=== PATIENT | male | born 1970 | race Caucasian/White ===

== ENCOUNTER 2018-08-31 20:00 | Emergency (ER) | payer SELFPAY ==
[2018-08-31 20:16] VITALS: BP 150/84
--- NOTE | 2018-08-31 20:54 | RADIOLOGY REPORT (SQ) ---
EXAM DESCRIPTION: XR HAND 3 OR MORE VIEWS COMPLETED DATE/TME: 08/31/2018 00:00 CLINICAL HISTORY: 47 years, Male, splinter in base of left thumb. COMPARISON: None. NUMBER OF VIEWS: Three TECHNIQUE: Frontal, oblique, and lateral radiographs of the left hand were obtained LIMITATIONS: None. FINDINGS: Visualized osseous structures are normal in appearance. Joint spaces are well-maintained. No acute fracture or dislocation is evident. However, there is soft tissue swelling surrounding the base of the thumb. No definite retained radiopaque foreign body. IMPRESSION: Soft tissue swelling about the base of the thumb without underlying acute osseous anomaly or definite retained radiopaque foreign body. However, wood splinters are not generally radiopaque. copyright 2010 [employer]- All Rights Reserved
[2018-08-31] MEDS ORDERED: CEFTRIAXONE 1 GM/D5W RTU 1 GM/50 ML RTUPB IV ONE (21:56)
[2018-08-31] MEDS ORDERED: SULFAMETHOXAZOLE/TRIMETHOPRIM 800-160 MG TABLET PO ONE (21:56)
--- NOTE | 2018-08-31 21:58 | ER Document Report ---
ED Medical Screen (RME) - General Chief Complaint: Hand Injury Stated Complaint: SWOLLEN LEFT HAND Time Seen by Provider: 08/31/18 21:56 Notes: 47-year-old male, chief complaint of getting a wooden splinter in his left palm at 11 AM yesterday, pulled part of the splinter out, unsure if he has retained piece. Since that time he has had increased swelling, he has developed redness and inability to move the left thumb today. Denies fever/chills, diabetes. Up-to-date on tetanus. TRAVEL OUTSIDE OF THE [place] IN LAST 30 DAYS: No - Related Data Allergies/Adverse Reactions: No Known Allergies Allergy (Verified 03/15/16 22:35) Past Medical History - Immunizations Hx Diphtheria, Pertussis, Tetanus Vaccination: Yes Physical Exam - Vital signs Vitals: Temp Pulse Resp BP Pulse Ox 98.7 F 80 22 H 150/84 H 99 08/31/18 20:14 08/31/18 20:14 08/31/18 20:14 08/31/18 20:14 08/31/18 20:14 - Extremities General upper extremity: Other - Left hand with a soft tissue swelling, warmth, tenderness with a small puncture wound noted at the palmar aspect near the thenar area. Very limited ability to move the left thumb. Course - Re-evaluation Re-evalutation: I have greeted and performed a rapid initial assessment of this patient. A comprehensive ED assessment and evaluation of the patient, analysis of test results and completion of the medical decision making process will be conducted by additional ED providers. - Vital Signs Vital signs: Temp Pulse Resp BP Pulse Ox 98.7 F 80 22 H 150/84 H 99 08/31/18 20:14 08/31/18 20:14 08/31/18 20:14 08/31/18 20:14 08/31/18 20:14
[2018-08-31 22:58] LABS: ABSOLUTE EOSINOPHILS # (AUTO) 0.1 10^3/uL (0.0-0.6); ABSOLUTE LYMPHOCYTES (AUTO) 2.9 10^3/uL (0.5-4.7); BASOPHILS % (AUTO) 0.2 % (0-2); EOSINOPHILS % (AUTO) 1.1 % (0-6); HEMATOCRIT 41.3 % (37.9-51.0); HEMOGLOBIN 14.3 g/dL (13.5-17.0); LYMPHOCYTES % (AUTO) 24.4 % (13-45); MEAN CORPUSCULAR HEMOGLOBIN 31.6 pg (27.0-33.4); MEAN CORPUSCULAR HGB CONC 34.6 g/dL (32.0-36.0); MEAN CORPUSCULAR VOLUME 91 fl (80-97); MONOCYTES % (AUTO) 8.2 % (3-13); PLATELET COUNT 189 10^3/uL (150-450); RED BLOOD COUNT 4.52 10^6/uL (4.35-5.55); RED CELL DISTRIBUTION WIDTH 13.2 % (11.5-14.0); SEGMENTED NEUTROPHILS % (AUTO) 66.1 % (42-78); TOTAL CELLS COUNTED % (AUTO) 100 %; WHITE BLOOD COUNT 12.1 10^3/uL (4.0-10.5)
[2018-08-31 23:23] LABS: ANION GAP 9 (5-19); BLOOD UREA NITROGEN 12 mg/dL (7-20); CALCIUM 9.5 mg/dL (8.4-10.2); CARBON DIOXIDE 28 mmol/L (22-30); CHLORIDE 104 mmol/L (98-107); GLUCOSE 80 mg/dL (75-110); SODIUM 141.4 mmol/L (137-145)
--- NOTE | 2018-09-01 00:21 | ER Document Report ---
Addendum entered and electronically signed by FARIBA REYES PA 09/01/18 06:31: Physical Exam - Vital signs Vitals: Temp Pulse Resp BP Pulse Ox 98.7 F 80 22 H 150/84 H 99 08/31/18 20:14 08/31/18 20:14 08/31/18 20:14 08/31/18 20:14 08/31/18 20:14 - Notes Notes: GENERAL: Alert, interacts well. No acute distress. HEAD: Normocephalic, atraumatic. EYES: Pupils equal, round, and reactive to light. Extraocular movements intact. ENT: Oral mucosa moist, tongue midline. Oropharynx unremarkable. Airway patent. LUNGS: Clear to auscultation bilaterally, no wheezes, rales, or rhonchi. No respiratory distress. HEART: Regular rate and rhythm. No murmur ABDOMEN: Soft, non-tender. Non-distended. Bowel sounds present in all 4 quadrants. GENITOURINARY: Deferred EXTREMITIES: Left thumb with a healing wound over the palmar aspect just underneath the PIP of the thumb, beyond this there is soft tissue swelling, erythema, tenderness. Very limited range of motion of the thumb. Sensation and capillary refill intact. Remaining hand exam unremarkable. Remaining extremities unremarkable. BACK: no cervical, thoracic, lumbar midline tenderness. No saddle anesthesia, normal distal neurovascular exam. NEUROLOGICAL: Alert and oriented x3. Normal speech. . PSYCH: Normal affect, normal mood. SKIN: Warm, dry, normal turgor. No rashes or lesions noted. Addendum entered and electronically signed by FARIBA REYES PA 09/01/18 06:30: Past Medical History - General Information source: Patient - Social History Smoking Status: Current Every Day Smoker Chew tobacco use (# tins/day): No Frequency of alcohol use: None Drug Abuse: None Lives with: Family Family History: Reviewed & Not Pertinent Patient has suicidal ideation: No Patient has homicidal ideation: No - Medical History Medical History: Negative Renal/ Medical History: Denies: Hx Peritoneal Dialysis - Immunizations Immunizations up to date: Yes Hx Diphtheria, Pertussis, Tetanus Vaccination: Yes Original Note: ED Hand/Wrist Injury - General TRAVEL OUTSIDE OF THE [place] IN LAST 30 DAYS: No <FARIBA REYES - Last Filed: 09/01/18 00:19> <ADILENE CELIS - Last Filed: 09/01/18 00:37> - General Chief Complaint: Hand Injury Stated Complaint: SWOLLEN LEFT HAND Time Seen by Provider: 08/31/18 21:56 Notes: Patient is a 47-year-old male, chief complaint of getting a wooden splinter in his left palm at 11 AM yesterday, pulled part of the splinter out, unsure if he has retained piece. Since that time he has had increased swelling, he has developed redness and inability to move the left thumb today. Denies fever/chills, diabetes. Up-to-date on tetanus. (FARIBA REYES) - Related Data Allergies/Adverse Reactions: No Known Allergies Allergy (Verified 03/15/16 22:35) Past Medical History - Social History Smoking Status: Current Every Day Smoker Chew tobacco use (# tins/day): No Frequency of alcohol use: None Drug Abuse: None Family History: Reviewed & Not Pertinent Patient has suicidal ideation: No Patient has homicidal ideation: No Renal/ Medical History: Denies: Hx Peritoneal Dialysis - Immunizations Hx Diphtheria, Pertussis, Tetanus Vaccination: Yes <FARIBA REYES - Last Filed: 09/01/18 00:19> - Vital signs Vitals: Temp Pulse Resp BP Pulse Ox 98.7 F 80 22 H 150/84 H 99 08/31/18 20:14 08/31/18 20:14 08/31/18 20:14 08/31/18 20:14 08/31/18 20:14 Course - Laboratory Result Diagrams: 08/31/18 22:23 08/31/18 22:23 <FARIBA REYES - Last Filed: 09/01/18 00:19> - Laboratory Result Diagrams: 08/31/18 22:23 08/31/18 22:23 <ADILENE CELIS - Last Filed: 09/01/18 00:37> - Re-evaluation Re-evalutation: 09/01/18 00:32 Patient was initially seen by the physician tourist information assistant, Fariba Reyes. I went and saw the patient as well. Patient has an area over the flexor aspect of the th umb where he had pulled out a splinter. Since then his thumb has become very swollen. He now cannot flex the thumb. He cannot fully extend the thumb. I have concerns for flexor tenosynovitis. I explained to the patient what flexor tenosynovitis is. I informed him that this is something that most likely may require surgery and that he should be seen by orthopedics and admitted to the hospital. I informed him that delaying this could lead to loss of function of his thumb or potentially lose his thumb or part of his hand. Patient is understanding of this but is adamant that he has to leave because he has to be the superintendent service of a job tomorrow. He says that he will take the antibiotics and go to work tomorrow in the morning and inform his boss of what is going on and therefore come back to the ER in the morning. I informed him that I am glad that he is planning to come back tomorrow however that still delaying treatment of his thumb by even 12 hours could lead to a bad outcome and decrease the use of his hand in the future. Patient is understanding of this and still says that he cannot stay and requests to be discharged AGAINST MEDICAL ADVICE. Patient will be discharged as he requests. I once again informed him that we want what is best for him and therefore encourage him to return anytime and want him to return so that we can get him the appropriate treatment for his hand and thumb. Patient agrees and will be discharged home as he requests. Dictation of this chart was performed using voice recognition software; therefore, there may be some unintended grammatical errors. (ADILENE CELIS) - Vital Signs Vital signs: Temp Pulse Resp BP Pulse Ox 98.7 F 80 22 H 150/84 H 99 08/31/18 20:14 08/31/18 20:14 08/31/18 20:14 08/31/18 20:14 08/31/18 20:14 - Laboratory Laboratory results interpreted by me: 08/31/18 22:23 WBC 12.1 H Discharge <FARIBA REYES - Last Filed: 09/01/18 00:19> <ADILENE CELIS - Last Filed: 09/01/18 00:37> - Discharge Clinical Impression: Swelling of left hand Condition: Stable Disposition: HOME, SELF-CARE Additional Instructions: The x-ray does not show any obvious foreign body but this is nonspecific given a possible wooden splinter. Your examination is concerning for an infection in your hand, this can also cause an infection in the tendon sheath which can be very serious. Keep clean and dressed. Clean with soap and water. You have been started on antibiotics but I recommend that you return as soon as possible if this does not improve or if this worsens in any way. Prescriptions: Cephalexin Monohydrate [Keflex 500 mg Capsule] 500 mg PO QID #28 capsule Sulfamethoxazole/Trimethoprim [Bactrim Ds Tablet] 1 each PO BID #14 tablet
== END 2018-09-01 00:25 | disposition home or self-care (01) ==
LOC: ER 20:00
DX: M79.89 Other specified soft tissue disorders (principal); S60.552A Superficial foreign body of left hand, initial encounter; X58.XXXA Exposure to other specified factors, initial encounter; F17.200 Nicotine dependence, unspecified, uncomplicated
CPT/HCPCS: 99283; 96365; 36415; 85025; 80048; 73130; J0696

== ENCOUNTER 2019-10-25 09:29 | Day surgery (SDC) | payer OTHER ==
[2019-10-20 09:33] LABS: HEMATOCRIT 41.2 % (37.9-51.0); HEMOGLOBIN 14.2 g/dL (13.5-17.0); MEAN CORPUSCULAR HEMOGLOBIN 31.5 pg (27.0-33.4); MEAN CORPUSCULAR HGB CONC 34.5 g/dL (32.0-36.0); MEAN CORPUSCULAR VOLUME 91 fl (80-97); PLATELET COUNT 191 10^3/uL (150-450); RED BLOOD COUNT 4.52 10^6/uL (4.35-5.55); RED CELL DISTRIBUTION WIDTH 12.9 % (11.5-14.0); WHITE BLOOD COUNT 6.6 10^3/uL (4.0-10.5)
[~2019-10-25 09:29] MED LIST: ACETAMINOPHEN 325 MG TABLET PO PRN; CEFAZOLIN 2 GM/D5W RTU 2 GM/50 ML RTUPB IV ONE; CEFAZOLIN 2 GM/D5W RTU 2 GM/50 ML RTUPB IV PRN; LACTATED RINGERS 1000 ML IV PRN; LIDOCAINE 0.5% INJ-PF (5 MG/ML) 50 ML SDV SUBCUT PRN
[2019-10-25] MEDS ORDERED: PROPOFOL INJ 200 MG/20 ML VIAL IV ONE (10:35)
[2019-10-25] MEDS ORDERED: FENTANYL CITRATE INJ/PF 250 MCG/5 ML AMPULE ONE (10:35)
[2019-10-25] MEDS ORDERED: MIDAZOLAM 2 MG/2 ML INJ ONE (10:35)
[2019-10-25] MEDS: BUPIVACAINE HCL 0.25% /EPINEPHRINE INJ/PF 30 ML SDV ONE ×2 (11:34→12:09)
[2019-10-25] MEDS ORDERED: PROMETHAZINE HCL INJ 25 MG/1 ML VIAL IV PRN ×2 (12:04)
[2019-10-25] MEDS ORDERED: OXYCODONE-ACETAMINOPHEN 5-325 MG TABLET PO PRN ×3 (12:04→12:26)
[2019-10-25] MEDS ORDERED: FENTANYL CITRATE INJ/PF 100 MCG/2 ML AMPUL IV PRN ×3 (12:04)
[2019-10-25] MEDS ORDERED: DIPHENHYDRAMINE HCL 50 MG/ML VIAL IV PRN (12:04)
[2019-10-25] MEDS ORDERED: MEPERIDINE HCL/PF INJ 25 MG/1 ML DISP.SYRIN IV PRN (12:04)
--- NOTE | 2019-10-25 12:22 | Operative Report ---
Nonrecallable Operative Report DATE OF SURGERY: 10/25/19 PREOPERATIVE DIAGNOSIS: left inguinal hernia POSTOPERATIVE DIAGNOSIS: left inguinal hernia OPERATION: laparoscopic left inguianl hernia repair SURGEON: ELIAN SELLERS PL SQL PROGRAMMER: [place] ANESTHESIA: GA TISSUE REMOVED OR ALTERED: none COMPLICATIONS: none ESTIMATED BLOOD LOSS: 10cc INTRAOPERATIVE FINDINGS: see note PROCEDURE: Patient was brought to the operating room awake alert stable condition placed in the operative table supine position induced under general anesthesia and intubated. Both left and right groin and lower abdomen prepped and draped in usual sterile fashion. After appropriate timeout and site verification the procedure commenced. Curvilinear infraumbilical incision was made with a 15 blade dissection was carried down through subcutaneous tissue with Bovie cautery to the rectus sheath transverse incision was made in the anterior rectus sheath and the muscle was retracted laterally and the Spacemaker balloon was placed into the retroperitoneum on top of the posterior sheath it was insufflated under direct vision and removed the working port was then placed through that incision as well as 2 5 mm ports in the midline under direct vision. We turned attention to the left side we mobilized the peritoneum along the left lateral abdominal wall with blunt dissection identifying the transversalis muscle and continued our dissection inferiorly to where we identified the hernia defect. We then lifted the cord structures as well as the hernia sac up and dissected the cord structures away from the hernia sac and began dissecting the hernia sac away from a indirect inguinal hernia defect. The patient had a fairly large sac and it took some dissection to remove the sac from the hernia defect once it was done the hernia sac was posterior lysed and the cord structures were easily visualized the vas deferens and spermatic artery is spermatic veins were all identified. We then fashioned a piece of polypropylene mesh 6 cm long by 4 cm wide with a slit down the side placed into the retroperitoneum we fix it posterior to Benedict's ligament anterior to the rectus muscle laterally through transversalis muscle. We then wrapped the cord structures and fix the 2 tails of the mesh to itself laterally. We were careful not to injure the lateral femoral cutaneous nerve. Once we cover the large hernia defect on the left side we turned attention to the right side and examined it for hernia defect we mobilized the peritoneum away from the lateral abdominal wall identified the peritoneum that was lying on top of the cord structures it did not extend therefore he did not have a hernia on the right side the pneumoperitoneum was then reduced Iinto the groin. There is also no evidence of a direct inguinal hernia the fascial defects were closed with 0 Vicryl in the fascia and then all 3 skin incisions were made with the size of 0.5% Marcaine solution is closed with 4-0 Biosyn and Steri-Strips completed the procedure estimated blood loss was less than 10 cc sponge needle counts correct x2 the patient was awakened in the operating extubated transferred recovery stable condition no complications
--- NOTE | 2019-10-25 12:26 | Discharge Summary ---
Discharge Summary (SDC) - Discharge Final Diagnosis: left inguinal hernia Date of Surgery: 10/25/19 Discharge Date: 10/25/19 Condition: Good Prescriptions: Oxycodone HCl/Acetaminophen [Percocet 10-325 Mg Tablet] 1 each PO Q6HP PRN #15 tablet PRN Reason: Referrals: CHENG BENRSTEIN MD [Primary Care Provider] - Discharge Diet: Regular Discharge Activity: Activity As Tolerated, No Lifting Over 10 Pounds Report the Following to Your Physician Immediately: Shortness of Breath, Nausea, Vomiting, Increase in Pain, Unusual Bleeding - f/u with me in 7-10 days.
[2019-10-25 14:13] VITALS: BP 143/108
[2019-10-25] MEDS ORDERED: ROCURONIUM BROMIDE INJ 50 MG/5 ML VIAL IV ONE (14:39)
[2019-10-25] MEDS ORDERED: ONDANSETRON HCL INJ/PF 4 MG/2 ML SDV ONE (14:39)
[2019-10-25] MEDS ORDERED: SUCCINYLCHOLINE CHLORIDE INJ 200 MG/10 ML VIAL ONE (14:39)
[2019-10-25] MEDS ORDERED: DEXAMETHASONE SOD PHOSPHATE INJ 4 MG/1 ML VIAL ONE (14:39)
== END 2019-10-25 13:55 | disposition home or self-care (01) ==
LOC: OROUT 09:29
PROVIDERS: ATTEND Surgery
DX: K40.90 Unilateral inguinal hernia, without obstruction or gangrene, not specified as recurrent (principal); F17.210 Nicotine dependence, cigarettes, uncomplicated; Z03.818 Encounter for observation for suspected exposure to other biological agents ruled out
CPT/HCPCS: 36415; 85027; 87635; 49650; J2250; J3490 ×2; J1100; J3010; J0330; J2405; J2704; J0690; C9803; C1713; C1781

== ENCOUNTER 2020-01-13 08:58 | Day surgery (SDC) | payer OTHER ==
[2020-01-13 09:44] LABS: HEMATOCRIT 40.1 % (37.9-51.0); HEMOGLOBIN 14.1 g/dL (13.5-17.0); MEAN CORPUSCULAR HEMOGLOBIN 30.9 pg (27.0-33.4); MEAN CORPUSCULAR HGB CONC 35.2 g/dL (32.0-36.0); MEAN CORPUSCULAR VOLUME 88 fl (80-97); PLATELET COUNT 231 10^3/uL (150-450); RED BLOOD COUNT 4.58 10^6/uL (4.35-5.55); RED CELL DISTRIBUTION WIDTH 14.1 % (11.5-14.0)
[2020-01-13 10:00] LABS: INTERNATIONAL RATION (INR) 0.95; PROTHROMBIN TIME 12.9 SEC (11.4-15.4)
[2020-01-13 10:01] LABS: PARTIAL THROMBOPLASTIN TIME 23.5 SEC (23.5-35.8)
[2020-01-13 10:05] LABS: BLOOD UREA NITROGEN 16 mg/dL (7-20)
[2020-01-13] MEDS ORDERED: FENTANYL CITRATE INJ/PF 100 MCG/2 ML AMPUL ONE (11:26)
[2020-01-13] MEDS ORDERED: MIDAZOLAM 2 MG/2 ML INJ ONE (11:26)
[2020-01-13 16:41] VITALS: BP 139/96
--- NOTE | 2020-01-13 18:19 | RADIOLOGY REPORT (SQ) ---
EXAM DESCRIPTION: CHEST SINGLE VIEW IMAGES COMPLETED DATE/TIME: 01/13/2020 2:49 pm REASON FOR STUDY: 2HR POST BIOPSY COMPARISON: CT biopsy images from earlier. Radiographs from 2016. FINDINGS: One-view chest AP portable upright. No pneumothorax. Bilateral mild apical pleural thickening, chronic. Lungs are otherwise clear. TECHNICAL DOCUMENTATION: JOB ID: [id number] Reading location - IP[facility]workstation name: [email or web address]
--- NOTE | 2020-01-17 13:43 | RADIOLOGY REPORT (SQ) ---
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 TECHNIQUE: CT guided biopsy of the left adrenal mass performed with conscious sedation. CT Fluoroscopy Time: 1 minutes [address] scanners at this facility use dose modulation, iterative reconstruction, and/or weight based d osing when appropriate to reduce radiation dose to as low as reasonably achievable (ALARA). [facility]: Dose Right [facility]: CareDose [facility]: Dose Right [facility]: Teradose 4D [facility]: [employer] RADIATION DOSE: mGy. FINDINGS: After obtaining informed consent and explaining the risks and benefits of conscious sedati on,the patient agreed to the procedure. Prior to the procedure, a time out was performed to verify th e patient's identity and planned procedure. IV sedation was administered and physician direction by the registered nurse using 0.5 milligrams of Versed and 25 micrograms of fentanyl, for conscious sedation. Physiologic monitoring was provided bef ore, during, and after sedation. The total sedation time was 30 minutes. Documentation face to face time, the performing proceduralist, spent monitoring the patient: [address] scanning was performed to localize the percutaneous site for the biopsy approach. After sterile skin prep and local lidocaine for skin and deep tissue anesthesia, a coaxial biopsy nee dle was used to obtain multiple cores of tissue. The biopsy tissue was submitted to the lab in forma qian. There were no immediate complications. Pathology is pending at the time of dictation. IMPRESSION: CT GUIDED BIOPSY OF THE LEFT ADRENAL GLAND PERFORMED WITHOUT IMMEDIATE COMPLICATION. KRISTIN THOLOGY ADENOCARCINOMA, FAVOR LUNG PRIMARY. COMMENT: Quality ID 145: Final reports for procedures using fluoroscopy that document radiation exp osure indices, or exposure time and number of fluorographic images (if radiation exposure indices are not available) Patient medication list reviewed: Yes- Quality ID# [id number]:Eligible professional attests to documenting i n the medical record they obtained, updated, or reviewed the patient's current medications.. TECHNICAL DOCUMENTATION: JOB ID: [id number] Quality ID# [id number]: Final reports with documentation of one or more dose reduction techniques (e.g., Aut omated exposure control, adjustment of the mA and/or kV according to patient size, use of iterative r econstruction technique) 2010 [employer]- All Rights Reserved Reading location - IP/workstation name: [email or web address]
== END 2020-01-13 14:45 | disposition home or self-care (01) ==
LOC: RAD 08:58
PROVIDERS: ATTEND Internal Medicine
DX: C74.12 Malignant neoplasm of medulla of left adrenal gland (principal); F17.210 Nicotine dependence, cigarettes, uncomplicated
CPT/HCPCS: 36415; 84520; 82565; 85027; 85610; 85730; 88342 ×2; 88341 ×2; 88305 ×2; 88313 ×2; 71045; 49180; J2250; J3010

== ENCOUNTER 2020-02-01 07:01 | Day surgery (SDC) | payer OTHER ==
[~2020-02-01 07:01] MED LIST changes: -ACETAMINOPHEN 325 MG TABLET PO PRN; -LACTATED RINGERS 1000 ML IV PRN; -LIDOCAINE 0.5% INJ-PF (5 MG/ML) 50 ML SDV SUBCUT PRN
[2020-02-01] MEDS ORDERED: HEPARIN SOD (PORCINE) 1,000 UNIT/ML 10 ML VIAL ONE (08:10)
[2020-02-01] MEDS ORDERED: LIDOCAINE 1%/EPINEPHRINE INJ 20 ML VIAL ONE (08:10)
[2020-02-01] MEDS ORDERED: HEPARIN SOD (PORCINE) 1,000 UNIT/ML 1 ML VIAL ONE (09:53)
[2020-02-01] MEDS ORDERED: FENTANYL CITRATE INJ/PF 100 MCG/2 ML AMPUL ONE (09:54)
[2020-02-01] MEDS ORDERED: LIDOCAINE 2% INJ-PF (20 MG/ML) 10 ML AMPUL ONE (09:54)
[2020-02-01] MEDS ORDERED: PROPOFOL INJ 200 MG/20 ML VIAL IV ONE (09:54)
[2020-02-01] MEDS ORDERED: ONDANSETRON HCL INJ/PF 4 MG/2 ML SDV ONE (09:54)
[2020-02-01] MEDS ORDERED: MIDAZOLAM 2 MG/2 ML INJ ONE (09:54)
[2020-02-01] MEDS ORDERED: KETAMINE HCL INJ 500 MG/10 ML VIAL ONE (09:54)
[2020-02-01] MEDS ORDERED: OXYCODONE-ACETAMINOPHEN 5-325 MG TABLET PO PRN ×2 (10:21)
[2020-02-01] MEDS ORDERED: PROMETHAZINE HCL INJ 25 MG/1 ML VIAL IV PRN ×2 (10:21)
[2020-02-01] MEDS ORDERED: MORPHINE SULFATE 10 MG/ML INJ IV PRN (10:21)
[2020-02-01] MEDS ORDERED: MEPERIDINE HCL/PF INJ 25 MG/1 ML DISP.SYRIN IV PRN (10:21)
[2020-02-01] MEDS ORDERED: DIPHENHYDRAMINE HCL 50 MG/ML VIAL IV PRN (10:21)
[2020-02-01] MEDS ORDERED: FENTANYL CITRATE INJ/PF 100 MCG/2 ML AMPUL IV PRN ×3 (10:21)
--- NOTE | 2020-02-01 10:59 | Operative Report ---
Nonrecallable Operative Report DATE OF SURGERY: 02/01/20 PREOPERATIVE DIAGNOSIS: metastatic lung cancer POSTOPERATIVE DIAGNOSIS: metastatic lung cancer OPERATION: portacath placement left chest ANESTHESIA: Moderate Sedation TISSUE REMOVED OR ALTERED: none COMPLICATIONS: none ESTIMATED BLOOD LOSS: 0 INTRAOPERATIVE FINDINGS: see note PROCEDURE: Patient was brought to the operating when awake alert stable condition placed on the operating table in supine position and given IV sedation the left chest and neck were prepped and draped in usual sterile fashion. After appropriate timeout site verification the procedure commenced. Using 1% lidocaine plain a skin wheal was made just below the left clavicle and the skin and then a tract was anesthetized with a lidocaine to reach the left clavicle. Then using the 16-gauge needle the left subclavian vein was accessed and a wire was placed into it and confirmed in the left superior vena cava on fluoroscopy. The dilator introducer combination was placed over the wire and manipulated under fluoroscopy into the superior vena cava. The dilator was removed and the Port-A-Cath catheter was placed in through the tear-away introducer placed just above the right atrium on fluoroscopy and the tear-away introducer was torn away. On the left anterior chest wall a transverse incision was made just above the nipple after anesthetizing the skin with 1% lidocaine with epinephrine. A subcutaneous pocket was made with Bovie cautery to allow for the port. The tunnel maker supplied with a kit was utilized to tunnel the catheter from the subclavian stick site to the port site. The catheter was cut and then attached to the port. It withdrew and flushed easily. Good position was confirmed with fluoroscopy. It was placed into the pocket and the subcutaneous tissue was reapproximated with interrupted 3-0 Vicryl and skin was reapproximated intracuticular 3-0 Biosyn Steri-Strips completed the procedure. Estimated blood loss was negligible sponge needle counts correct x2 the patient was transferred to recovery room in stable condition. Chest x-ray is pending.
--- NOTE | 2020-02-01 11:02 | PDOC DISCHARGE SUMMARY ---
General - Admit/Disc Date/PCP Admission Date/Primary Care Provider: CHENG BERNSTEIN MD Discharge Date: 02/01/20 - Discharge Diagnosis Final Diagnosis: metastatic lung cancer - Additional Information Resuscitation Status: Full Code Discharge Diet: As Tolerated Discharge Activity: Activity As Tolerated, No Lifting Over 10 Pounds Referrals: CHENG BERNSTEIN MD [Primary Care Provider] - Home Medications: Dexamethasone [Decadron] 2 mg PO QID 01/13/20 Folic Acid 1 mg PO DAILY 01/13/20 Tramadol HCl [Ultram] 50 mg PO PRN PRN 01/31/20 History of Present Illiness History of Present Illness: SUNSHINE MONTILLA is a 49 year old male Physical Exam Vital Signs: Temp Pulse Resp BP Pulse Ox 97.9 F 74 18 124/87 H 97 02/01/20 07:00 02/01/20 07:00 02/01/20 07:00 02/01/20 07:00 02/01/20 07:00 Intake & Output 01/31/20 02/01/20 02/02/20 06:59 06:59 06:59 Intake Total 50 Balance 50 Weight 59.42 kg 59.42 kg Results Laboratory Results: COVID-19 Source See comment 01/27/20 11:20 COVID-19 ([facility]) Not Detected (Not Detect) 01/27/20 11:20
--- NOTE | 2020-02-01 11:28 | RADIOLOGY REPORT (SQ) ---
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 FLUOROSCOPY TIME: 3.5 minutes Spot images saved to PACS. TECHNIQUE: Intra-operative images acquired during surgical procedure to evaluate progress. NUMBER OF IMAGES: 2 LIMITATIONS: None. FINDINGS: Fluoroscopy was provided for intraoperative procedure. Please refer to the operative repo rt for further discussion. IMPRESSION: IMAGE(S) OBTAINED DURING PROCEDURE. COMMENT: Quality ID 145: Final reports for procedures using fluoroscopy that document radiation exp osure indices, or exposure time and number of fluorographic images (if radiation exposure indices are not available) Please consult full operative report of the attending physician for description of the procedure. TECHNICAL DOCUMENTATION: JOB ID: [id number] 2010 [email or web address]- All Rights Reserved Reading location - IP/workstation name: [email or web address]
--- NOTE | 2020-02-01 11:28 | RADIOLOGY REPORT (SQ) ---
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 FLUOROSCOPY TIME: 3.5 minutes Spot images saved to PACS. TECHNIQUE: Intra-operative images acquired during surgical procedure to evaluate progress. NUMBER OF IMAGES: 2 LIMITATIONS: None. FINDINGS: Fluoroscopy was provided for intraoperative procedure. Please refer to the operative repo rt for further discussion. IMPRESSION: IMAGE(S) OBTAINED DURING PROCEDURE. COMMENT: Quality ID 145: Final reports for procedures using fluoroscopy that document radiation exp osure indices, or exposure time and number of fluorographic images (if radiation exposure indices are not available) Please consult full operative report of the attending physician for description of the procedure. TECHNICAL DOCUMENTATION: JOB ID: [id number] 2010 [employer]- All Rights Reserved Reading location - IP/workstation name: [email or web address]
[2020-02-01 12:57] VITALS: BP 116/83
== END 2020-02-01 12:45 | disposition home or self-care (01) ==
LOC: OROUT 07:01
PROVIDERS: ATTEND Surgery
DX: C34.90 Malignant neoplasm of unspecified part of unspecified bronchus or lung (principal); C79.31 Secondary malignant neoplasm of brain; F17.210 Nicotine dependence, cigarettes, uncomplicated; Z86.69 Personal history of other diseases of the nervous system and sense organs; Z03.818 Encounter for observation for suspected exposure to other biological agents ruled out; Z79.899 Other long term (current) drug therapy
CPT/HCPCS: 87635; 71045; 77001; 00532; 36561; C1788; Q9967; J2250; J3010; J1644; J3490 ×3; J2405; J2704; J0690; J1642; C9803; 532

== ENCOUNTER → 2020-02-06 | Outpatient (CLI) | payer OTHER ==
--- NOTE | 2020-02-06 13:57 | RADIOLOGY REPORT (SQ) ---
EXAM DESCRIPTION: VENOUS UNILATERAL LOWER IMAGES COMPLETED DATE/TIME: 02/06/2020 1:44 pm REASON FOR STUDY: RLE PAIN M79.604 PAIN IN RIGHT LEG COMPARISON: None. TECHNIQUE: Dynamic and static gaoan scale and color images acquired of the right leg venous system. S elected spectral images acquired with additional compression and augmentation maneuvers. The contrala teral common femoral vein and saphenofemoral junction were also imaged. Images stored on PACS. LIMITATIONS: None. FINDINGS: COMMON FEMORAL: Normal phasicity, compression and augmentation. No visualized echogenic ma terial on gaona scale. No defects on color images. FEMORAL: There is acute thrombus in the superficial femoral vein. POPLITEAL: Acute thrombus. CALF VESSELS: Acute thrombus. GSV and SSV: Normal compression, augmentation. No visualized echogenic material on gaona scale. No def ects on color images. ANY DEEP VENOUS INSUFFICIENCY: Not evaluated. ANY EVIDENCE OF POPLITEAL CYST: No. OTHER: No other significant finding. CONTRALATERAL COMMON FEMORAL VEIN AND SAPHENOFEMORAL JUNCTION: Normal phasicity, compression and augmentation. No visualized echogenic material on gaona scale. No de fects on color images. IMPRESSION: Acute DVT in the right lower extremity from the proximal superficial femoral vein into t he calf veins. TECHNICAL DOCUMENTATION: JOB ID: [id number] 2010 [employer]- All Rights Reserved Reading location - IP/workstation name: [email or web address]
== END ==
LOC: SP 12:28
PROVIDERS: ATTEND Internal Medicine
DX: I82.411 Acute embolism and thrombosis of right femoral vein (principal); M79.604 Pain in right leg; M79.89 Other specified soft tissue disorders
CPT/HCPCS: 93971

== ENCOUNTER 2020-03-15 08:02 | Day surgery (SDC) | payer OTHER ==
[2020-03-09 13:15] LABS: HEMATOCRIT 40.1 % (37.9-51.0); HEMOGLOBIN 14.2 g/dL (13.5-17.0); MEAN CORPUSCULAR HEMOGLOBIN 31.7 pg (27.0-33.4); MEAN CORPUSCULAR HGB CONC 35.5 g/dL (32.0-36.0); MEAN CORPUSCULAR VOLUME 89 fl (80-97); PLATELET COUNT 387 10^3/uL (150-450); RED BLOOD COUNT 4.49 10^6/uL (4.35-5.55); RED CELL DISTRIBUTION WIDTH 15.7 % (11.5-14.0); WHITE BLOOD COUNT 6.8 10^3/uL (4.0-10.5)
[~2020-03-15 08:02] MED LIST changes: +ACETAMINOPHEN 325 MG TABLET PO PRN; +DEXMEDETOMIDINE INJ 80 MCG/20 ML VIAL IV ONE; +FENTANYL CITRATE INJ/PF 100 MCG/2 ML AMPUL ONE; +LACTATED RINGERS 1000 ML IV PRN; +LIDOCAINE 2% INJ (20 MG/ML) 20 ML MDV ONE; +MIDAZOLAM 2 MG/2 ML INJ ONE; +PROPOFOL INJ 200 MG/20 ML VIAL IV ONE
[2020-03-15] MEDS ORDERED: HEPARIN SOD (PORCINE) 1,000 UNIT/ML 1 ML VIAL ONE (09:21)
[2020-03-15] MEDS ORDERED: LIDOCAINE 1%/EPINEPHRINE INJ 20 ML VIAL ONE (09:21)
[2020-03-15 09:33] LABS: INTERNATIONAL RATION (INR) 0.99; PROTHROMBIN TIME 13.3 SEC (11.4-15.4)
[2020-03-15 09:34] LABS: PARTIAL THROMBOPLASTIN TIME 34.2 SEC (23.5-35.8)
[2020-03-15] MEDS ORDERED: FENTANYL CITRATE INJ/PF 100 MCG/2 ML AMPUL IV PRN ×3 (09:47)
[2020-03-15] MEDS ORDERED: ONDANSETRON HCL INJ/PF 4 MG/2 ML SDV IV PRN (09:47)
[2020-03-15] MEDS ORDERED: MEPERIDINE HCL/PF INJ 25 MG/1 ML DISP.SYRIN IV PRN (09:47)
[2020-03-15] MEDS ORDERED: DIPHENHYDRAMINE HCL 50 MG/ML VIAL IV PRN (09:47)
[2020-03-15] MEDS ORDERED: PROMETHAZINE HCL INJ 25 MG/1 ML VIAL IV PRN (09:47)
[2020-03-15] MEDS ORDERED: MORPHINE SULFATE 10 MG/ML INJ IV PRN (09:47)
--- NOTE | 2020-03-15 10:29 | Operative Report ---
Nonrecallable Operative Report DATE OF SURGERY: 03/15/20 PREOPERATIVE DIAGNOSIS: Metastatic lung cancer POSTOPERATIVE DIAGNOSIS: Same OPERATION: Port-A-Cath placement right chest SURGEON: ELIAN OCAMPO ANESTHESIA: Moderate Sedation TISSUE REMOVED OR ALTERED: None COMPLICATIONS: None ESTIMATED BLOOD LOSS: 2 cc INTRAOPERATIVE FINDINGS: See note PROCEDURE: Procedure patient brought to the operating room awake alert stable condition placed on the operative table supine position given IV sedation. The right neck and chest were prepped and draped in usual sterile fashion. Using 1% lidocaine with epinephrine the area underneath the right clavicle was anesthetized in the subcutaneous tissue. Then using a 16-gauge needle we gained access to the right subclavian vein. A wire was placed in through the needle into the superior vena cava confirmed on fluoroscopy. Once this was done the dilator introducer was placed over the wire into the superior vena cava. The dilator was removed and the catheter was placed in through the tear-away introducer positioned in the superior vena cava and the tear-away introducer was torn away. A point was picked on the right anterior chest wall this was anesthetized with 1% lidocaine with epinephrine. A transverse incision was made over the T6 int erspace on the anterior chest wall just above the right nipple. After the incision was made a subcutaneous pocket was fashioned with Bovie cautery. Then using the tunnel maker supplied with a kit the catheter was tunneled from the right subclavian stick site to the port site. It was attached to the port and confirmed with good flow and withdraw. Fluoroscopy was utilized to determine good position. The port was then heparinized with heparinized saline solution and the subcutaneous tissue was closed with interrupted 3-0 Vicryl sutures. The skin was closed with intracuticular 4-0 Biosyn and a sterile dressing was applied. Estimated blood loss was less then 5 cc sponge needle counts were correct x2 he was transferred recovery in stable condition no complications
--- NOTE | 2020-03-15 10:31 | Discharge Summary ---
Discharge Summary (SDC) - Discharge Final Diagnosis: Metastatic lung cancer Date of Surgery: 03/15/20 Discharge Date: 03/15/20 Condition: Fair Referrals: CHENG BERNSTEIN MD [Primary Care Provider] - Discharge Diet: As Tolerated Respiratory Treatments at Home: Deep Breathing/Coughing Discharge Activity: Activity As Tolerated Home Care Assistance: None Needed Report the Following to Your Physician Immediately: Fever over 101 Degrees, Redness, Drainage-Yellow, Drainage-Foul Smelling - Patient will follow-up in surgical clinic in 7 to 10 days and with oncology.
--- NOTE | 2020-03-15 11:45 | RADIOLOGY REPORT (SQ) ---
EXAM DESCRIPTION: CHEST SINGLE VIEW IMAGES COMPLETED DATE/TIME: 03/15/2020 10:59 am REASON FOR STUDY: Post Port-A-Cath placement COMPARISON: 02/01/2020 EXAM PARAMETERS: NUMBER OF VIEWS: One view. TECHNIQUE: Single frontal radiographic view of the chest acquired. RADIATION DOSE: NA LIMITATIONS: None. FINDINGS: LUNGS AND PLEURA: No opacities, masses or pneumothorax. No pleural effusion. MEDIASTINUM AND HILAR STRUCTURES: No masses. Contour normal. HEART AND VASCULAR STRUCTURES: Heart normal in size. Normal vasculature. BONES: No acute findings. HARDWARE: Injection port is now on the right side. The tip of the catheter is in the superior vena c reina. OTHER: No other significant finding. IMPRESSION: Injection port as described. TECHNICAL DOCUMENTATION: JOB ID: [id number] 2010 [employer]- All Rights Reserved Reading location - IP/workstation name: [email or web address]
[2020-03-15 12:31] VITALS: BP 97/72
--- NOTE | 2020-03-15 12:49 | RADIOLOGY REPORT (SQ) ---
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 FLUOROSCOPY TIME: 1.5 minutes Spot images saved to PACS. TECHNIQUE: Intra-operative images acquired during surgical procedure to evaluate progress. NUMBER OF IMAGES: 2 LIMITATIONS: None. FINDINGS: Fluoroscopy was provided for intraoperative procedure. Please refer to the operative repo rt for further discussion. IMPRESSION: IMAGE(S) OBTAINED DURING PROCEDURE. COMMENT: Quality ID [id number]: Final reports for procedures using fluoroscopy that document radiation exp osure indices, or exposure time and number of fluorographic images (if radiation exposure indices are not available) Please consult full operative report of the attending physician for description of the procedure. TECHNICAL DOCUMENTATION: JOB ID: [id number] 2010 [employer]- All Rights Reserved Reading location - IP/workstation name: [email or web address]
== END 2020-03-15 12:10 | disposition home or self-care (01) ==
LOC: OROUT 08:02
PROVIDERS: ATTEND Surgery
DX: C34.90 Malignant neoplasm of unspecified part of unspecified bronchus or lung (principal); C79.9 Secondary malignant neoplasm of unspecified site; F17.210 Nicotine dependence, cigarettes, uncomplicated; Z86.718 Personal history of other venous thrombosis and embolism; Z79.01 Long term (current) use of anticoagulants; Z79.899 Other long term (current) drug therapy; Z86.69 Personal history of other diseases of the nervous system and sense organs; Z03.818 Encounter for observation for suspected exposure to other biological agents ruled out
CPT/HCPCS: 36415 ×2; 85027; 85610; 85730; 87635; 71045; 77001; 36561; C1788; Q9967; J2250; J3490 ×3; J1644; J2704; J0690; C9803; J3010

== ENCOUNTER → 2020-06-06 | Outpatient (CLI) | payer OTHER ==
--- NOTE | 2020-06-06 14:26 | RADIOLOGY REPORT (SQ) ---
EXAM DESCRIPTION: HUMERUS LEFT IMAGES COMPLETED DATE/TIME: 06/06/2020 1:50 pm REASON FOR STUDY: (M25.512)PAIN IN LEFT SHOULDER;(M79.622)PAIN IN LEFT UPPER ARM M25.512 PAIN IN LE FT SHOULDER M79.622 PAIN IN LEFT UPPER ARM COMPARISON: None. NUMBER OF VIEWS: Two views. TECHNIQUE: Two radiographic images were acquired of the left humerus to include elbow and shoulder i n at least one projection. LIMITATIONS: None. FINDINGS: MINERALIZATION: Normal. BONES: No acute fracture or dislocation. No worrisome bone lesions. No significant osteophytes. SOFT TISSUES: No obvious swelling or foreign body. OTHER: No other significant finding. IMPRESSION: NEGATIVE STUDY OF THE LEFT HUMERUS. NO EXPLANATION FOR PAIN. TECHNICAL DOCUMENTATION: JOB ID: [id number] 2010 [employer]- All Rights Reserved Reading location - IP/workstation name: [email or web address]
--- NOTE | 2020-06-06 14:26 | RADIOLOGY REPORT (SQ) ---
EXAM DESCRIPTION: SHOULDER LEFT 2 OR MORE VIEWS IMAGES COMPLETED DATE/TIME: 06/06/2020 1:50 pm REASON FOR STUDY: (M25.512)PAIN IN LEFT SHOULDER M25.512 PAIN IN LEFT SHOULDER M79.622 PAIN IN LEF T UPPER ARM COMPARISON: None. NUMBER OF VIEWS: Three view. TECHNIQUE: Internal rotation, external rotation, and Y view images acquired of the left shoulder. LIMITATIONS: None. FINDINGS: MINERALIZATION: Normal. BONES: No acute fracture. No worrisome bone lesions. No significant osteophytes. GLENOHUMERAL JOINT: No significant findings. ACROMIOCLAVICULAR JOINT: No large osteophytes. SOFT TISSUES: No calcifications. VISUALIZED RIBS, SPINE, AND LUNG: No other significant finding. OTHER: No other significant finding. IMPRESSION: NEGATIVE STUDY OF THE LEFT SHOULDER. NO EXPLANATION FOR PAIN. TECHNICAL DOCUMENTATION: JOB ID: [id number] 2010 [employer]- All Rights Reserved Reading location - IP/workstation name: [email or web address]
== END ==
LOC: RAD 13:30
PROVIDERS: ATTEND Internal Medicine
DX: M25.512 Pain in left shoulder (principal); M79.622 Pain in left upper arm